=== PATIENT | female | born 1955 | race Caucasian/White ===

== ENCOUNTER 2024-08-31 15:14 | Inpatient (IN) | payer MEDICARE, BC ==
[~2024-08-31] VITALS: Ht 170.2 cm; Wt 81.2 kg
[2024-08-31] MEDS ORDERED: MAG HYDROX/ALUMINUM HYD/SIMETH 30 ML SUSPENSION UDCUP PO PRN (17:45)
[2024-08-31 18:00] VITALS: BP 111/52; PULSE 52; RESP 18; TEMP 98; O2SAT 100
[2024-08-31] MEDS: BUTALBITAL/ACETAMINOPHEN/CAFFEINE 50-325-40 MG TABLET PO PRN (19:00)
[2024-08-31 20:13] VITALS: BP 96/73; PULSE 66; RESP 18; TEMP 97.7; O2SAT 99
[2024-08-31] MEDS: DOCUSATE SODIUM 100 MG CAPSULE PO SCH (21:30)
[2024-08-31] MEDS: ZOLPIDEM TARTRATE 5 MG TABLET PO PRN (21:30)
[2024-08-31] MEDS: -LIDODERM PATCH NOTE- MISC SCH ×2 (21:30→21:31)
[2024-08-31] MEDS: SENNOSIDES 8.6 MG TABLET PO SCH (21:30)
[2024-08-31] MEDS: LevETIRAcetam 250 MG TABLET PO SCH (21:32)
[2024-09-01 00:24] VITALS: O2SAT 99
[2024-09-01] MEDS: PNEUMOCOCCAL VACCINE POLYVALENT 0.5 ML SYRINGE [PPSV23] IM. ONE (01:00)
[2024-09-01 07:09] LABS: ALANINE AMINOTRANSFERASE 38 U/L (12-78); ALBUMIN 2.8 g/dL (3.4-5.0); ALKALINE PHOSPHATASE 67 U/L (46-116); ANION GAP 6 mmol/L (8-16); ASPARTATE AMINOTRANSFERASE 21 U/L (15-37); BILIRUBIN,TOTAL 0.3 mg/dL (0.1-1.0); CALCIUM, TOTAL 8.9 mg/dL (8.8-10.5); CARBON DIOXIDE 28 mmol/L (22-29); CHLORIDE 104 mmol/L (98-107); CREATININE 0.86 mg/dL (0.60-1.30); GLOMERULAR FILTR. RATE CALC > 60 mL/min (>60); GLUCOSE,RANDOM 91 mg/dL (70-110); POTASSIUM 3.9 mmol/L (3.5-5.1); SODIUM SERUM 138 mmol/L (136-145); TOTAL PROTEIN, SERUM 6.3 g/dL (6.4-8.2); UREA NITROGEN, BLOOD 13 mg/dL (7-18)
[2024-09-01 07:30] LABS: BASOPHILS % (AUTO) 0.5 % (0.0-2.0); EOSINOPHILS % (AUTO) 2.3 % (1.0-6.0); HEMATOCRIT 37.6 % (36-46); HEMOGLOBIN 12.4 g/dL (12.0-16.0); LYMPHOCYTES # (AUTO) 2.3 K/uL (1.0-4.8); LYMPHOCYTES % (AUTO) 34.2 % (22.0-44.0); MEAN CORPUSCULAR VOLUME 94 fL (80-100); MONOCYTES # (AUTO) 0.7 K/uL (0.1-1.0); NEUTROPHILS # (AUTO) 3.6 K/uL (1.8-7.7); PLATELET COUNT (AUTO) 299 K/uL (150-450); RED BLOOD CELL COUNT(AUTO) 3.99 MIL/uL (4.00-5.20); RED CELL DISTRIBUTION WIDTH 13.7 % (11.5-14.5); WHITE BLOOD COUNT (AUTO) 6.9 K/uL (4.5-11.0)
[2024-09-01 08:00] VITALS: BP 109/54; PULSE 55; RESP 19; TEMP 97.7; O2SAT 98
[2024-09-01] MEDS: ENOXAPARIN SODIUM 40 MG/0.4 ML PF SYRINGE SQ SCH (08:24)
[2024-09-01] MEDS: LACTASE 3,000 UNIT TABLET PO SCH (08:24)
[2024-09-01] MEDS: SODIUM CHLORIDE 1 GM TABLET PO SCH (08:25)
[2024-09-01] MEDS: LIDOCAINE 5% TRANSDERMAL PATCH TD SCH ×2 (08:26)
[2024-09-01] MEDS: FLUCONAZOLE 100 MG TABLET PO ONE (12:23)
[2024-09-01 19:33] VITALS: BP 99/66; PULSE 59; RESP 18; TEMP 97.6; O2SAT 98
[2024-09-01 22:10] VITALS: O2SAT 98
[2024-09-01] MEDS: ETHYL ALCOHOL 62% ANTISEPTIC NASAL SANITIZER 0.6 ML AMPUL NASAL SCH (22:51)
[2024-09-02] MEDS: LORazepam 0.5 MG TABLET PO PRN (03:57)
[2024-09-02 08:00] VITALS: BP 103/55; PULSE 77; RESP 18; TEMP 97.6; O2SAT 95
[2024-09-02 11:29] LABS: APPEARANCE,URINE CLEAR (CLEAR); BILIRUBIN,URINE NEGATIVE (NEGATIVE); COLOR,URINE LIGHT YELLOW (YELLOW); GLUCOSE, URINE (UA) NEGATIVE (NEGATIVE); KETONES,URINE NEGATIVE (NEGATIVE); LEUKOCYTE ESTERASE ,URINE SMALL (NEGATIVE); NITRATE,URINE NEGATIVE (NEGATIVE); OCCULT BLOOD,URINE NEGATIVE (NEGATIVE); PH,URINE 5.5 (5.0-8.0); PROTEIN,URINE NEGATIVE (NEGATIVE); SPECIFIC GRAVITIY, URINE 1.011 (1.003-1.030); UROBILINOGEN,URINE <=1.0 mg/dL (<=1.0)
[2024-09-02 11:40] LABS: BACTERIA,URINE Many /HPF (None Seen); RBC,URINE None Seen /HPF (0-2); SQUAMOUS EPITHELIAL CELL,UR Moderate /LPF (None Seen)
[2024-09-02] MEDS: CIPROFLOXACIN HCL 500 MG TABLET PO SCH (15:52)
[2024-09-02] MEDS ORDERED: CEPHALEXIN MONOHYDRATE 500 MG CAPSULE PO SCH (16:00)
[2024-09-02 20:19] VITALS: BP 130/69; PULSE 60; RESP 18; TEMP 97.7; O2SAT 99
[2024-09-02] MEDS: BUTALBITAL/ACETAMINOPHEN/CAFFEINE 50-325-40 MG TABLET PO PRN (20:19)
[2024-09-02 20:36] VITALS: O2SAT 99
[2024-09-02] MEDS ORDERED: CIPROFLOXACIN HCL 500 MG TABLET PO SCH (21:00)
[2024-09-03 09:30] VITALS: O2SAT 99
[2024-09-03 09:36] VITALS: BP 107/58; PULSE 61; RESP 18; TEMP 97.3; O2SAT 99
[2024-09-03 20:26] VITALS: BP 147/72; PULSE 66; RESP 18; TEMP 98.1; O2SAT 98
[2024-09-03 22:00] VITALS: O2SAT 100
[2024-09-04] MEDS: THYROID 30 MG TABLET PO SCH (06:55)
[2024-09-04] MEDS: PANTOPRAZOLE SODIUM 40 MG DR TABLET PO SCH (06:56)
[2024-09-04 08:00] VITALS: BP 118/71; PULSE 50; RESP 18; TEMP 97.4; O2SAT 97
[2024-09-04 08:26] VITALS: O2SAT 97
[2024-09-04 15:19] LABS: APPEARANCE,URINE CLEAR (CLEAR); BILIRUBIN,URINE NEGATIVE (NEGATIVE); COLOR,URINE YELLOW (YELLOW); GLUCOSE, URINE (UA) NEGATIVE (NEGATIVE); KETONES,URINE NEGATIVE (NEGATIVE); LEUKOCYTE ESTERASE ,URINE NEGATIVE (NEGATIVE); NITRATE,URINE NEGATIVE (NEGATIVE); OCCULT BLOOD,URINE NEGATIVE (NEGATIVE); PH,URINE 5.5 (5.0-8.0); PROTEIN,URINE NEGATIVE (NEGATIVE); SPECIFIC GRAVITIY, URINE 1.018 (1.003-1.030); UROBILINOGEN,URINE <=1.0 mg/dL (<=1.0)
[2024-09-04 15:30] LABS: BACTERIA,URINE None Seen /HPF (None Seen); RBC,URINE None Seen /HPF (0-2); SQUAMOUS EPITHELIAL CELL,UR None Seen /LPF (None Seen); WBC,URINE 0-2 /HPF (0-5)
[2024-09-04] MEDS: ACETAMINOPHEN 325 MG TABLET PO PRN (18:37)
[2024-09-04 20:00] VITALS: O2SAT 98
[2024-09-04 20:40] VITALS: BP 111/58; PULSE 72; RESP 18; TEMP 97.7; O2SAT 98
[2024-09-05] MEDS ORDERED: CIPR500T10 PO (00:50)
[2024-09-05] MEDS ORDERED: DOCU-385 PO (00:50)
[2024-09-05] MEDS ORDERED: THYR30TA24 PO ×2 (00:50→09:43)
[2024-09-05] MEDS ORDERED: SODI100067 PO (00:50)
[2024-09-05] MEDS ORDERED: LEVE250T81 PO ×2 (00:50→09:43)
[2024-09-05] MEDS ORDERED: PANT-31 PO ×2 (00:50→09:43)
[2024-09-05] MEDS ORDERED: LACTAB PO (00:50)
[2024-09-05] MEDS ORDERED: LIDO700A15 TP (01:22)
[2024-09-05] MEDS ORDERED: BUTA-318 PO ×2 (01:22→09:43)
[2024-09-05] MEDS ORDERED: ZOLP-280 PO (01:22)
[2024-09-05 07:56] VITALS: BP 129/65; PULSE 62; RESP 18; TEMP 98.7; O2SAT 96
== END 2024-09-05 11:26 | disposition home or self-care (01) | DRG 56 ==
LOC: 2WR 17:58
PROVIDERS: ADMIT Physical Medicine & Rehabilitation; ATTEND Physical Medicine & Rehabilitation
DX: G81.91 Hemiplegia, unspecified affecting right dominant side (principal); I60.9 Nontraumatic subarachnoid hemorrhage, unspecified; I62.00 Nontraumatic subdural hemorrhage, unspecified; E22.2 Syndrome of inappropriate secretion of antidiuretic hormone; E46 Unspecified protein-calorie malnutrition; N39.0 Urinary tract infection, site not specified; R47.01 Aphasia; K21.9 Gastro-esophageal reflux disease without esophagitis; M54.16 Radiculopathy, lumbar region; E03.9 Hypothyroidism, unspecified; F41.9 Anxiety disorder, unspecified; F51.04 Psychophysiologic insomnia; G47.33 Obstructive sleep apnea (adult) (pediatric); G89.29 Other chronic pain; B96.20 Unspecified Escherichia coli [E. coli] as the cause of diseases classified elsewhere; M54.50 Low back pain, unspecified; Z74.09 Other reduced mobility; R41.3 Other amnesia; Z74.1 Need for assistance with personal care; Z85.42 Personal history of malignant neoplasm of other parts of uterus; Z86.711 Personal history of pulmonary embolism; Z86.718 Personal history of other venous thrombosis and embolism; Z88.0 Allergy status to penicillin; Z88.2 Allergy status to sulfonamides; Z88.3 Allergy status to other anti-infective agents; Z90.710 Acquired absence of both cervix and uterus; Z95.828 Presence of other vascular implants and grafts; Z68.20 Body mass index [BMI] 20.0-20.9, adult
CPT/HCPCS: 80053; 81001; 85025; 87077; 87081; 87086; 87186; 92507; 92523; 93971; 97110; 97112; 97116; 97163; 97167; 97530; 97535; 99366; J1650